=== PATIENT | female | born 1955 | race Caucasian/White ===

== ENCOUNTER → 2016-05-31 | Outpatient (CLI) | payer OTHER ==
[~2016-05-31] MED LIST: ALTACE10 MG PO; CELEBREX200 MG PO; COLACE100 MG PO; CPAP INH; DILAUDID 2MG(HYD2 MG PO; FLONASE 50 MCG/16 GM NOSE; IBUPROFEN200 M1 PO; KRILL OIL 3001 EACH PO; LASIX20 MG PO; MIRALAX17 GM PO; OXYCONTIN EXTEN10 MG PO; TYLENOL EXTRA500 MG PO; ULTRAM50 MG PO; XARELTO10 MG PO
== END | disposition disaster alternative care site (69) ==
LOC: GRAD 08:00
DX: J32.9 Chronic sinusitis, unspecified (principal); J34.2 Deviated nasal septum; J34.89 Other specified disorders of nose and nasal sinuses; R42 Dizziness and giddiness

== ENCOUNTER → 2016-07-18 | Outpatient (CLI) | payer OTHER | END | disposition disaster alternative care site (69) | LOC: GBCOE 15:00 | DX: Z12.31 Encounter for screening mammogram for malignant neoplasm of breast (principal) | CPT/HCPCS: G0202 ==